=== PATIENT | male | born 1950 | race Caucasian/White ===

== ENCOUNTER 2017-06-07 16:43 | Inpatient (IN) | payer OTHER ==
[~2017-06-07] VITALS: Ht 193 cm; Wt 108.9 kg
[~2017-06-07 16:43] MED LIST: LEVSIN0.125 M1 PO; LOSARTAN POTASS50 M1 PO; LOVASTATIN20 M1 PO; METFORMIN HCL1000 M1 PO; MORPHINE SULFAT15 M3 PO; PERCOCET 5-3251 EACH PO; PROVENTIL HFA6.7 GM INH; ZOFRAN ODT4 M1 SL
--- NOTE | 2017-06-07 18:56 | ED INFLUENZA/URI COMPLAINT ---
History of Present Illness General Chief Complaint: Upper Respiratory Sx/Fever Stated Complaint: ?FLU Source: patient, family Exam Limitations: no limitations Vital Signs & Intake/Output Vital Signs & Intake/Output Vital Signs Date Time Temp Pulse Resp B/P B/P Pulse O2 O2 Flow FiO2 Mean Ox Delivery Rate 06/09 1855 93 Nasal 1.0L Cannula 06/09 1600 Nasal 1.0L Cannula 06/09 1443 98.2 68 20 120/68 95 06/09 0944 76 152/70 06/09 0824 94 Nasal 2.0L Cannula 06/09 0800 Nasal 2.0L Cannula 06/09 0620 98.7 76 20 152/70 95 Nasal 2.0L Cannula 06/09 0000 Nasal 2.0L Cannula 06/08 2226 98.3 76 20 124/80 95 Nasal Cannula ED Intake and Output 06/09 0000 06/08 1200 Intake Total 980 250 Output Total 600 Balance 980 -350 Intake, IV 300 200 Intake, Oral 680 50 Number 1 Bowel Movements Output, Urine 600 Patient 240 lb Weight Weight Bed scale Measurement Method Allergies Coded Allergies: No Known Allergies (04/23/17) Triage Note: RECEIVED 66 YO MALE WITH C/O SEVERE NON PRODUCTIVE COUGH X FEW DAYS, PLEURITIC CHEST PAIN WITH COUGHING, LOW GRADE FEVER, BODY ACHES AND PAIN, WEAKNESS. Triage Nurses Notes Reviewed? yes Onset: Gradual Duration: day(s): Timing: recent history Severity: moderate HPI: 66yo male with hx of CAD s/p stents, DM, bladder CA presents to ED complaining of cough, fever/chills, weakness, fatigue, and sore throat x 2 days. Patient reports that symptoms have been gradually worsening over the past 2 days. Cough is intermittently productive of yellow sputum. Patient also reporting intermittent dyspnea. Patient also notes pleuritic pain bilaterally. Patient is a former smoker. Patient's present states she recently had bronchitis a few weeks ago. Patient denies chest pain, abdominal pain, nausea, vomiting, diarrhea. (Dang PACHECO,Leyla Ornelas) Reconcile Medications Albuterol Sulfate (Proventil Hfa) 90 MCG HFA.AER.AD 2 PUF INH 4 TIMES/DAY ( Reported) Amoxicillin/Potassium Clav (Augmentin 875-125 Tablet) 875 MG-125 MG TABLET 1 TAB PO BID Pneumonia Aspirin (Aspirin*) 325 MG TABLET 1 TAB PO DAILY HEART HEALTH (Reported) Hyoscyamine (Levsin) 0.125 MG TABLET 1-2 TAB PO Q6P PRN ABDOMINAL CRAMPS Losartan Potassium 100 MG TABLET 1 TAB PO DAILY HIGH BLOOD PRESSURE (Reported ) Lovastatin 20 MG TABLET 1 TAB PO DAILY HIGH CHOLESTEROL (Reported) Metformin HCl 1,000 MG TABLET 1 TAB PO BID DM (Reported) Morphine Sulfate (Morphine Sulfate ER) 15 MG TABLET.ER 1 TAB PO BIDP PRN NEUROPATHY IN FEET (Reported) Ondansetron (Zofran Odt) 4 MG TAB.RAPDIS 1 TAB SL Q6P PRN NAUSEA/VOMITING Oxycodone HCl/Acetaminophen (Percocet 5-325 MG Tablet) 1 EACH TABLET 1-2 TAB PO Q6P PRN PAIN (Kamran Farr DO) Past History Travel History Traveled to [place] past 21 day No Medical History Any Pertinent Medical History? see below for history Neurological: NONE EENT: hearing loss Cardiovascular: hypertension, hyperlipidemia, STENT Respiratory: NONE Gastrointestinal: NONE Hepatic: NONE Renal: NONE Musculoskeletal: NONE Psychiatric: NONE Endocrine: diabetes Blood Disorders: NONE Cancer(s): NONE Surgical History Surgical History: non-contributory Psychosocial History Who do you live with Spouse What is your primary language Sammarinese Tobacco Use: Never used Family History Hx Contributory? No (Leyla Thomas) Review of Systems Review of Systems Constitutional: Reports: see HPI. EENTM: Reports: see HPI. Respiratory: Reports: see HPI. Cardiovascular: Reports: no symptoms. GI: Reports: no symptoms. Genitourinary: Reports: no symptoms. Musculoskeletal: Reports: no symptoms. Skin: Reports: no symptoms. Neurological/Psychological: Reports: no symptoms. Hematologic/Endocrine: Reports: no symptoms. Immunologic/Allergic: Reports: no symptoms. All Other Systems: Reviewed and Negative (Leyla Thomas) Physical Exam Physical Exam General Appearance: well developed/nourished, no apparent distress, alert, awake Head: atraumatic, normal appearance Eyes: Bilateral: normal appearance. Ears, Nose, Throat: hearing grossly normal, mild erythema to pharynx bilaterally , no exudates Neck: normal inspection, supple, full range of motion Respiratory: inspiratory wheezes left anterior lung field, mildly diminished breath sounds bilateral posterior lower lobes Cardiovascular: tachycardia Peripheral Pulses: 2+ radial (R), 2+ radial (L) Gastrointestinal: normal bowel sounds, soft, non-tender, no organomegaly Back: normal inspection, normal range of motion Extremities: normal inspection, normal range of motion, no edema Neurologic/Psych: awake, alert, oriented x 3 Skin: intact, normal color, warm/dry Core Measures Sepsis Present: No Sepsis Focused Exam Completed? No (Dang PACHECO,Leyla Ornelas) Progress Differential Diagnosis: influenza, pneumonia, pharyngitis, sinusitis Plan of Care: Orders Procedure Date/time Status CBC WITHOUT DIFFERENTIAL 06/10 0600 Active Anticipated Discharge 06/10 UNK Active MISSING MEDICATION FORM 06/09 UNK Active OXYGEN SETUP CHG 06/08 UNK Complete OXYGEN 06/08 UNK Complete OXYGEN TRANSPORT 06/08 UNK Complete Current Medications Sig/Rani Start time Last Medication Dose Stop Time Status Admin Prednisone 40 MG DAILY 06/09 1000 AC 06/09 0944 Gabapentin 100 MG Q8 06/09 0733 AC 06/09 (Neurontin) 1449 Ceftriaxone Sodium 1,000 MG 2300 06/08 2300 AC 06/08 (Rocephin) 2233 Senna/Docusate Sodium 1 TAB AT BEDTIME 06/08 2200 AC 06/08 (Senokot S) 2113 Atorvastatin Calcium 5 MG 1700 06/08 1700 AC 06/09 (Lipitor) 1757 Albuterol Sulfate 3 ML Q4P PRN 06/08 1445 AC (Proventil) Albuterol Sulfate 2 PUF 4 TIMES/DAY 06/08 1000 AC 06/09 (Ventolin) 1758 Aspirin 325 MG DAILY 06/08 1000 AC 06/09 (Aspirin) 0944 Enoxaparin Sodium 40 MG DAILY 06/08 1000 AC (Lovenox) Losartan Potassium 100 MG DAILY 06/08 1000 AC 06/09 (Cozaar) 0944 Morphine Sulfate 15 MG BID PRN 06/08 1000 AC 06/09 (Ms Contin) 0830 Insulin Aspart 0 TIDAC 06/08 0800 AC 06/09 (NovoLOG) 1757 Acetaminophen 650 MG Q6P PRN 06/08 0215 AC (Tylenol) Guaifenesin 600 MG Q12 06/08 0207 AC 06/09 (Mucinex) 0944 Chest x-ray without evidence for acute pneumonia. Patient's vital signs have improved following antipyretics and supplemental oxygen. Given significant leukocytosis in setting of fever and cough will obtain CT imaging to further assess for pneumonia and rule out PE. CT scan shows likely atypical pneumonia. Patient was started on antibiotics, fluids. Patient with hypoxia at rest without supplemental oxygen, requires IV antibiotics, respiratory therapy, supplemental oxygen, possible pulmonology consult. Spoke with hospitalist, Dr. Cochran regarding this patient's general medicine admission. Diagnostic Imaging: Viewed by Me: Radiology Read, CT Scan. Discussed w/RAD: Radiology Read, CT Scan. Radiology Impression: PATIENT: BERNARDO PERRY PRESENT AGE: 66 PATIENT ACCOUNT NO: [id number] : 51 LOCATION: [facility] ORDERING PHYSICIAN: Leyla PACHECO SERVICE DATE: 06/07/17 EXAM TYPE: CAT - CTA CHEST-PULMONARY EMBOLISM EXAMINATION: CT PULMONARY EMBOLISM STUDY CLINICAL INFORMATION: Dyspnea. Hypoxia. Fever. COMPARISON: Same day chest radiograph. TECHNIQUE: Contiguous helical images of the chest were obtained following the administration of IV contrast. Multiplanar reconstructions were performed. MIPS were obtained and reviewed. DLP: 590 mGy-cm. CONTRAST: 95 mL of Optiray 350 were administered without incident. FINDINGS: The heart is of normal size. There is no pericardial effusion. There is a subcarinal lymph node present measuring 18 mm in short axis. There are scattered right hilar lymph nodes. The largest measures 13 mm in short axis. There is a 14 mm left hilar lymph node. The great vessels are unremarkable. Specifically, there is no pulmonary arterial filling defect. There is no CT evidence for pulmonary embolism. There are no chest wall masses. Review of lung windows demonstrates that there are neither pleural effusions nor pneumothoraces. There is mild right greater than left bilateral bronchial wall thickening. There are areas of likely tree-in-bud opacification with mild surrounding groundglass opacification bilaterally, particularly within the inferior right upper lobe and superior segment lingula and left lower lobe. Within the left lower lobe lateral basal segment best demonstrated on image 464/542, there is an approximately 11 mm nodular density. Limited evaluation of the upper abdomen demonstrates that the liver is of normal size and attenuation without focal lesions. Normal adrenal glands are identified. IMPRESSION: No CT evidence for pulmonary embolism. Mediastinal and hilar adenopathy as stated above. Bronchial wall thickening and scattered areas of tree-in-bud opacification. This is nonspecific, but suggestive of an atypical infection. 11 mm left lower lobe nodular density. DICTATED BY: Cleve Cowan MD DATE/TIME DICTATED:06/07/172236 BOW REHAIRER:ALEX DATE/TIME TRANSCRIBED:06/07/172236 CONFIDENTIAL, DO NOT COPY WITHOUT APPROPRIATE AUTHORIZATION. <Electronically signed in Other Vendor System> SIGNED BY: Cleve Cowan MD 06/07/172245 CXR Impression: PATIENT: BERNARDO PERRY PRESENT AGE: 66 PATIENT ACCOUNT NO: [id number] : 51 LOCATION: [facility] ORDERING PHYSICIAN: Leyla PACHECO SERVICE DATE: 06/07/17 EXAM TYPE: RAD - XRY- PORTABLE CHEST XRAY EXAMINATION: CHEST 1 VIEW CLINICAL INFORMATION: Cough. COMPARISON: 04/23/2017. TECHNIQUE: An AP view of the chest is provided. FINDINGS : The cardiac silhouette is not enlarged. The mediastinal and hilar contours are unremarkable. There are neither pleural effusions nor pneumothoraces. There are no consolidations. The osseous structures are unremarkable. IMPRESSION: No evidence for acute disease. DICTATED BY: Cleve Cowan MD DATE/TIME DICTATED:1901 BOW REHAIRER:ALEX DATE/TIME TRANSCRIBED:06/07/171901 CONFIDENTIAL, DO NOT COPY WITHOUT APPROPRIATE AUTHORIZATION. <Electronically signed in Other Vendor System> SIGNED BY: Cleve Cowan MD 06/07/171904 Initial ED EKG: sinus rhythm @88bpm, old inferior wall CT Prior EKG: unchanged (04/23/17) (Leyla Thomas) Departure Departure Disposition: STILL A PATIENT Condition: Stable Clinical Impression Primary Impression: Pneumonia Secondary Impressions: Dyspnea Referrals: Amandeep Aceves MD (PCP/Family) Departure Forms: Customer Survey General Discharge Information Admission Note Spoke With: Moo Justin MD Documentation of Exam: Documentation of any treatments & extenuating circumstances including Concerns Regarding Discharge (functional status, medication knowledge or non-compliance, living conditions, etc.) that warrant an admission rather than observation: [ Pneumonia with hypoxemia requiring IV antibiotics, supplemental oxygen, respiratory treatment, possible pulmonology consult the cultures, repeat labs, antipyretics, premature discharge would BE medically unsafe] (Leyla Thomas) Departure Prescriptions: Current Visit Scripts Amoxicillin/Potassium Clav (Augmentin 495-125 Tablet) 1 TAB PO BID #14 TAB PA/TIP MENDER Co-Sign Statement Statement: ED Attending supervision documentation- [] I saw and evaluated the patient. I have also reviewed all the pertinent lab results and diagnostic results. I agree with the findings and the plan of care as documented in the PA's/TIP MENDER's documentation. [X] I have reviewed the ED Record and agree with the PA's/TIP MENDER's documentation. [] Additions or exceptions (if any) to the PAs/TIP MENDER's note and plan are summarized below: [] (Kamran Farr DO) General Discharge Information Admission Note Spoke With: Nhan PHAM,Moo Documentation of Exam: Documentation of any treatments & extenuating circumstances including Concerns Regarding Discharge (functional status, medication knowledge or non-compliance, living conditions, etc.) that warrant an admission rather than observation: [ Pneumonia with hypoxemia requiring IV antibiotics, supplemental oxygen, respiratory treatment, possible pulmonology consult the cultures, repeat labs, antipyretics, premature discharge would BE medically unsafe]
--- NOTE | 2017-06-07 19:05 | RADIOLOGY REPORT ---
EXAMINATION: CHEST 1 VIEW CLINICAL INFORMATION: Cough. COMPARISON: 04/23/2017. TECHNIQUE: An AP view of the chest is provided. FINDINGS: The cardiac silhouette is not enlarged. The mediastinal and hilar contours are unremarkable. There are neither pleural effusions nor pneumothoraces. There are no consolidations. The osseous structures are unremarkable. IMPRESSION: No evidence for acute disease.
[2017-06-07 19:34] LABS: ABSOLUTE EOSINOPHIL COUNT 0 /CUMM (0.0-0.7); WHITE BLOOD CELL COUNT 18.8 /CUMM (4.8-10.8)
[2017-06-07 19:42] LABS: ABSOLUTE BASOPHIL COUNT 0.1 /CUMM (0.0-0.2); ABSOLUTE GRANULOCYTE CT 14.4 /CUMM (1.4-6.5); ABSOLUTE MONOCYTE COUNT 0.4 /CUMM (0.10-0.60); BASOPHIL % 0.3 % (0.0-2.0); EOSINOPHIL % 0 % (0-5); HEMATOCRIT 47.4 % (42-52); MEAN CORPUSCULAR HGB CONC 33.4 G/DL (33.0-37.0); MEAN CORPUSCULAR VOLUME 92.7 FL (80.0-94.0); MEAN PLATELET VOLUME 10.9 FL (7.4-10.4); PLATELET COUNT 231 /CUMM (130-400); RBC DISTRIBUTION WIDTH 14.7 % (11.5-14.5); RED BLOOD CELL CT 5.11 /CUMM (4.70-6.10)
[2017-06-07 20:11] LABS: GRANULOCYTE % 76.5 % (42.2-75.2)
--- NOTE | 2017-06-07 22:46 | CT SCAN REPORT ---
EXAMINATION: CT PULMONARY EMBOLISM STUDY CLINICAL INFORMATION: Dyspnea. Hypoxia. Fever. COMPARISON: Same day chest radiograph. TECHNIQUE: Contiguous helical images of the chest were obtained following the administration of IV contrast. Multiplanar reconstructions were performed. MIPS were obtained and reviewed. DLP: 590 mGy-cm. CONTRAST: 95 mL of Optiray 350 were administered without incident. FINDINGS: The heart is of normal size. There is no pericardial effusion. There is a subcarinal lymph node present measuring 18 mm in short axis. There are scattered right hilar lymph nodes. The largest measures 13 mm in short axis. There is a 14 mm left hilar lymph node. The great vessels are unremarkable. Specifically, there is no pulmonary arterial filling defect. There is no CT evidence for pulmonary embolism. There are no chest wall masses. Review of lung windows demonstrates that there are neither pleural effusions nor pneumothoraces. There is mild right greater than left bilateral bronchial wall thickening. There are areas of likely tree-in-bud opacification with mild surrounding groundglass opacification bilaterally, particularly within the inferior right upper lobe and superior segment lingula and left lower lobe. Within the left lower lobe lateral basal segment best demonstrated on image 464/542, there is an approximately 11 mm nodular density. Limited evaluation of the upper abdomen demonstrates that the liver is of normal size and attenuation without focal lesions. Normal adrenal glands are identified. IMPRESSION: No CT evidence for pulmonary embolism. Mediastinal and hilar adenopathy as stated above. Bronchial wall thickening and scattered areas of tree-in-bud opacification. This is nonspecific, but suggestive of an atypical infection. 11 mm left lower lobe nodular density.
--- NOTE | 2017-06-08 00:49 | History & Physical ---
Peter PHAM,[facility] 06/08/17 0048: General Information and HPI MD Statement: I have seen and personally examined BERNARDO MURRAY and documented this H&P. The patient is a 66 year old M who presented with a patient stated chief complaint of [cough, shortness of breath]. Source of Information: patient History of Present Illness: 66 year old male with a pmhx of htn, hld, cad s/p bare metal stent in 2011, t2d, bladdder cancer, appendicitis presenting for worsening cough. The patietn states that he had bronchitis several weeks ago. The patient states his symptoms started wednesday with an itch in his through. He states his new cough started last night and has been keeping him awake. He assocaites it with productive yellow/ green sputum and some SOB. He denies any cp, ear pain, nasal congestion, muscle aches, joint pain, sick contacts, abd pain, changes in elmiination or leg swelling. He has not received the flu or pna vaccine this year. He states he quit smoking 30 years ago and quit etoh 3 years ago. He does still smoker marijuana daily. Allergies/Medications Allergies: Coded Allergies: No Known Allergies (04/23/17) Past History Travel History Traveled to [place] past 21 day No Medical History Neurological: NONE EENT: hearing loss Cardiovascular: hypertension, hyperlipidemia, STENT Respiratory: NONE Gastrointestinal: NONE Hepatic: NONE Renal: NONE Musculoskeletal: NONE Psychiatric: NONE Endocrine: diabetes Blood Disorders: NONE Cancer(s): NONE Surgical History Surgical History: non-contributory Review of Systems Review of Systems Constitutional: Reports: see HPI. Respiratory: Reports: cough, short of breath, sputum production. Exam & Diagnostic Data Last 24 Hrs of Vital Signs/I&O Vital Signs Date Time Temp Pulse Resp B/P B/P Pulse O2 O2 Flow FiO2 Mean Ox Delivery Rate 06/08 1600 Nasal 2.0L Cannula 06/08 1420 98.3 81 1 130/62 96 06/08 1318 Nasal 2.0L Cannula 06/08 0826 136/60 06/08 0609 97.4 84 20 136/64 95 Nasal 2.0L Cannula 06/08 0305 Nasal 2.0L Cannula 06/08 0247 98.0 83 20 98/60 90 Nasal 2.0L Cannula 06/07 2039 99.9 20 90 Room Air Room Air 02/12 2013 94 Nasal 3.0L Cannula 06/07 2003 102.5 06/07 1947 102.6 06/07 1941 102.6 109 22 149/68 88 Room Air Room Air 06/074 95 Room Air Room Air 06/07 1810 100.2 110 20 198/81 90 Room Air Intake & Output 06/08 1600 06/08 0800 06/08 0000 Intake Total 200 250 120 Output Total 150 450 Balance 50 -200 120 Intake, IV 200 Intake, Oral 200 50 120 Number 1 0 Bowel Movements Output, Urine 150 450 Patient 240 lb 255 lb Weight Weight Bed scale Measurement Method Physical Exam General Appearance Alert, Cooperative, Mild Distress HEENT no lymphadenopathy Cardiovascular systolic murmur Lungs diffuse decreased air movement, diffuse wheezes Abdomen Normal Bowel Sounds, Soft, No Tenderness Extremities trace LE edema Vascular 2+ radial pulses Last 24 Hrs of Labs/Narayan: Laboratory Tests 06/08/17 0720: Anion Gap 15, Estimated GFR > 60, BUN/Creatinine Ratio 31.7 H, Hemoglobin A1c 6.5 H, Troponin I < 0.01, CBC w Diff NO MAN DIFF REQ, RBC 4.97, MCV 93.3, MCH 30.9, MCHC 33.2, RDW 15.0 H, MPV 10.5 H, Gran % 81.5 H, Lymphocytes % 18.1 L , Monocytes % 0.4 L, Eosinophils % 0, Basophils % 0, Absolute Granulocytes 15.0 H, Absolute Lymphocytes 3.3, Absolute Monocytes 0.1, Absolute Eosinophils 0, Absolute Basophils 0 06/08/17 0630: Urine Opiates Screen > 4000.00 H, Methadone Screen < 40, Barbiturate Screen < 60, Ur Phencyclidine Scrn < 6.00, Amphetamines Screen < 100, U Benzodiazepines Scrn > 800 H, Urine Cocaine Screen < 50, Urine Cannabis Screen > 80.00 H, Urine Color YEL, Urine Clarity CLEAR, Urine pH 6.0, Ur Specific [place] 1.025, Urine Protein 30 H, Urine Ketones 15 H, Urine Nitrite NEG, Urine Bilirubin NEG , Urine Urobilinogen 0.2, Ur Leukocyte Esterase NEG, Ur Microscopic SEDIMENT EXAMINED, Urine RBC RARE, Urine WBC RARE, Ur Epithelial Cells RARE, Urine Hemoglobin NEG, Urine Glucose NEG 06/08/17 0615: Troponin I Cancelled 06/07/17 2252: Lactic Acid 1.3 06/07/172117: Anion Gap 16, Estimated GFR > 60, BUN/Creatinine Ratio 20.0, Glucose 175 H, Calcium 9.6, Total Bilirubin 0.7, AST 19, ALT 22, Alkaline Phosphatase 44, Troponin I 0.01, Total Protein 7.6, Albumin 4.6, Globulin 3.0, Albumin/Globulin Ratio 1.5, CBC w Diff NO MAN DIFF REQ, RBC 5.11, MCV 92.7, MCH 31.0, MCHC 33.4, RDW 14.7 H, MPV 10.9 H, Gran % 76.5 H, Lymphocytes % 21.0, Monocytes % 2.2, Eosinophils % 0, Basophils % 0.3, Absolute Granulocytes 14.4 H, Absolute Lymphocytes 4.0 H, Absolute Monocytes 0.4, Absolute Eosinophils 0, Absolute Basophils 0.1 06/07/17 1836: Lactic Acid 2.0 Microbiology 06/08 914 LOWER RESP: Respiratory Culture - RES 06/08 914 LOWER RESP: Gram Stain - RES 06/08 629 URINE ROUT: Legionella Antigen - COMP 06/08 629 URINE ROUT: Streptococcus pneumoniae Antigen (M - COMP STREP PNEUMO BACTERIAL AG 06/07 2314 BLOOD: Blood Culture - RES 06/07 2252 BLOOD: Blood Culture - RES 06/07 2041 URINE ROUT: Urine Culture - CAN Cancelled: SPECIMEN NOT RECEIVED IN LABORATORY 06/07 181 NASOPHARYN: Influenza Virus A & B Rapid Smear - COMP Assessment/Plan Assessment: A: 66 yo old male with a pmhx CAD s/p RCA bare-metal stent, T2DM, HTN, HLD, bladder cancer in remission, GERD presenting for worsening productive cough, sob, and fevers found to have sepsis secondary to cap vs atypical pneumonia #Acute hypoxic respiratory failure due to cap vs atpical pneumonia T max 102.6, RR 20, BP 198/81-> 149/68, 90% on RA -> 94% on 3L WBC 18.8 Lactic acid 2.0 -> 1.3 trop .01. Flu swab neg. CXR: no acute disease. CTA chest: no PE. Bilateral bronchial wall thickening, tree-in-bud opacification with mild surrounding groundglass opacification within inferior RUL and LLL. 11 mm nodule in LLL. Mediastinal and hilar adenopathy. - f/u panculture, urine legionella and strep Ag - f/u Pulm consult - Repeat EKG and troponin in 6 AM - cont azithromycin Ceftriaxone #?COPD exascerbation Pt never diagnosed But smoking hx and continues to smoke marijuana -cont guaifenesin, trc, nebs - solumedrol q12 #htn -cont losartan Aspirin full dose #diabetes -f/u HbA1c -hold home metformin start novolog #History of CAD -cont atorvastatin- -encourage outpt cardiac f/u #Marijuana user -f/u check utox screen -psych for substance abuse counseling #Left lower lobe lung nodule with hilar/mediastinal LN -pulm consult as above -outpatient follow up #chronic pain and neuropathy -cont home MS Contin #FULL CODE #DVT prophylaxis -lovenox As Ranked By This Provider Problem List: 1. Dyspnea 2. Pneumonia 3. Sepsis Core Measures/Misc (01/10) Acute Coronary Syndrome ACS Diagnosis: No Congestive Heart Failure Congestive Heart Failure Diagnosis No Cerebrovascular Accident CVA/TIA Diagnosis: No VTE (View Protocol) VTE Risk Factors Acute Medical Illness No Mechanical VTE Prophylaxis d/t Other No VTE Pharm Prophylaxis d/t NA PharmProphylax ordered Sepsis (View protocol) Sepsis Present: Yes Nhan PHAM, [facility] 06/08/17 0115: Attending MD Review Statement Attending Statement Attending MD Statement: examined this patient, discuss w/resident/PA/HUMAN RESOURCE ASSISTANT, agreed w/resident/PA/HUMAN RESOURCE ASSISTANT, reviewed images, amended to note Attending Assessment/Plan: 66 yo M with h/o CAD s/p RCA bare-metal stent, T2DM, HTN, HLD, bladder cancer in remission, GERD, is here for c/o fever 102, productive cough and dyspnea for the past 2 days. C/o weakness, fatigue, sore throat and pleuritic chest pain. recently had bronchitis. He has had flu and pneumonia vaccines. He quit smoking cigarettes 30 yrs ago, but continues to use marijuana. He has never been diagnosed with COPD or asthma. Vitals: Tmax 102.6, HR 80-110's, BP 149/68 -->98/60, sats 88% RA --> 94% on 3L. Exam: AAO, in mild distress, dry mucous membranes, Neck supple, Chest b/l reduced air entry L>R, scattered wheeze+, Heart S1S2 regular, systolic murmur+, LE: trace edema. Labs: WBC 18.8, H/H 15.8/47.4, Plt 231, lactic acid 2.0, glucose 175, trop neg. Flu swab neg. CXR: no acute disease. CTA chest: no PE. Bilateral bronchial wall thickening, tree-in-bud opacification with mild surrounding groundglass opacification within inferior RUL and LLL. 11 mm nodule in LLL. Mediastinal and hilar adenopathy. EKG: sinus rhythm. Assessment and plan: 1. Acute hypoxic respiratory failure with sepsis 2. Community acquired pneumonia ?atypical pneumonia 3. COPD exacerbation (ex-smoker, although no PFT diagnosis) 4. Left lower lobe lung nodule with hilar/mediastinal LN 5. History of CAD 6. Marijuana user - Admit to General medicine - Panculture, urine legionella and strep Ag - IV ceftriaxone and azithro - TRC nebs - IV steroids - Pulm consult - Follow up lung nodule as outpatient - Check urine tox screen - Repeat EKG and troponin in AM - Counseling about substance abuse - Diabetes management, check HbA1c, hold metformin, initiate novolog SS - Continue morphine ER for chronic pain and neuropathy - Continue aspirin, statin and losartan. DVT ppx Lovenox. Full code. Marie PHAM,[facility] 06/08/17 0307: General Information and HPI Allergies/Medications Home Med list Albuterol Sulfate (Proventil Hfa) 90 MCG HFA.AER.AD 2 PUF INH 4 TIMES/DAY ( Reported) Aspirin (Aspirin*) 325 MG TABLET 1 TAB PO DAILY HEART HEALTH (Reported) Hyoscyamine (Levsin) 0.125 MG TABLET 1-2 TAB PO Q6P PRN ABDOMINAL CRAMPS Losartan Potassium 100 MG TABLET 1 TAB PO DAILY HIGH BLOOD PRESSURE (Reported ) Lovastatin 20 MG TABLET 1 TAB PO DAILY HIGH CHOLESTEROL (Reported) Metformin HCl 1,000 MG TABLET 1 TAB PO BID DM (Reported) Morphine Sulfate (Morphine Sulfate ER) 15 MG TABLET.ER 1 TAB PO BIDP PRN NEUROPATHY IN FEET (Reported) Ondansetron (Zofran Odt) 4 MG TAB.RAPDIS 1 TAB SL Q6P PRN NAUSEA/VOMITING Oxycodone HCl/Acetaminophen (Percocet 5-325 MG Tablet) 1 EACH TABLET 1-2 TAB PO Q6P PRN PAIN Resident Review Statement Resident Statement: examined this patient, discussed with legal intern, agreed with legal intern Other Findings: Mr. Murray is a 66 year old male with past medical history significant for hypertension, hyperlipidemia, coronary artery disease status post metal stent placement 2011 on full dose aspirin, blood cancer status post tumor excision presented to ED with chief complaint of severe cough for 2 days. Patient reported having sore throat and dry cough 2 days ago, but has been getting worse , productive of yellow/green sputum, associated with some shortness of breath. He denied any fever, chills, body aches, chest pain, palpitation, nasal congestion, ear or eye pain, history of sick contact. Patient didn't have flu vaccine or pneumonia vaccine. never been hospitalized before for pneumonia. He takes medication on regular basis, recently losartan increased from 50-100 mg daily, not following with cardiology Monet Pulido MD since 2011. Patient quit smoking 30 years ago, daily marijuana smoker, no alcohol consumption. Denied any leg swelling, reported some an intentional weight loss couple of pounds over the last 6 month none significant. Patient never diagnosed with COPD or any other lung disease. Vital signs on admission 100.2 with Tmax 102.6, heart rate 110, blood pressure 198/81 and patient was saturating 90% on room air, 94% on 3 L Physical exam significant for bilateral lung decreased air entry, cardiovascular systolic murmur Images CTA revealed No CT evidence for pulmonary embolism. Mediastinal and hilar adenopathy as stated above. Bronchial wall thickening and scattered areas of tree-in-bud opacification. This is nonspecific, but suggestive of an atypical infection. 11 mm left lower lobe nodular density. Problem list Acute hypoxic respiratory failure Pneumonia community-acquired versus atypical Left lower lobe lung nodule Mediastinal and hilar adenopathy reactional versus malignancy Hypertension and hyperlipidemia Diabetes mellitus type 2 Coronary artery disease Plan Admit to general medical floor Vitals every shift TRC and nebs Oxygen supplementation Ceftriaxone and azithromycin Urine streptococcus antigen and Legionella antigen Blood and sputum culture UA and urine tox One bag of normal saline 75 mL per hour Mucinex Will obtain pulmonary consultation in a.m. Accu-Chek and NovoLog sliding scale low-dose Continue home medication losartan, statin, morphine XL, aspirin, albuterol inhaler Discontinue metformin Stool softener DVT prophylaxis Lovenox Diet diabetic diet with 2 g sodium restriction Code full
--- NOTE | 2017-06-08 01:18 | Admission Certification ---
Admission Certification Certification Statement - As attending physician, I certify that at the time of - admission, based on clinical presentation, severity of - symptoms, need for further diagnostic testing and - therapeutic interventions, and risk of adverse outcomes - without in-hospital treatment, in my clinical assessment, - this patient requires an acute hospital stay for a minimum - of two nights or longer. I have also considered psychsocial - factors such as support system, advanced age, financial - issues, cognitive issues, and failed out-patient treatments, - past re-admission history, safety of patient, and lack of - compliance as applicable. Specific rationale supporting this admission is: Acute hypoxic respiratory failure, community acquired pneumonia, COPD exacerbation.
[2017-06-08] MEDS ORDERED: ASPIRIN325 M2 PO (01:23)
[2017-06-08] MEDS ORDERED: LOSARTAN POTAS100 M1 PO (02:10)
[2017-06-08 02:47] VITALS: BP 98/60
[2017-06-08 06:09] VITALS: BP 136/64
[2017-06-08 08:43] LABS: ABSOLUTE BASOPHIL COUNT 0 /CUMM (0.0-0.2); ABSOLUTE EOSINOPHIL COUNT 0 /CUMM (0.0-0.7); ABSOLUTE LYMPH COUNT 3.3 /CUMM (1.2-3.4); ABSOLUTE MONOCYTE COUNT 0.1 /CUMM (0.10-0.60); BASOPHIL % 0 % (0.0-2.0); EOSINOPHIL % 0 % (0-5); GRANULOCYTE % 81.5 % (42.2-75.2); HEMATOCRIT 46.3 % (42-52); MEAN CORPUSCULAR HGB 30.9 PG (27.0-31.0); MEAN CORPUSCULAR HGB CONC 33.2 G/DL (33.0-37.0); MEAN CORPUSCULAR VOLUME 93.3 FL (80.0-94.0); MEAN PLATELET VOLUME 10.5 FL (7.4-10.4); PLATELET COUNT 196 /CUMM (130-400); RED BLOOD CELL CT 4.97 /CUMM (4.70-6.10); WHITE BLOOD CELL COUNT 18.4 /CUMM (4.8-10.8)
[2017-06-08 14:20] VITALS: BP 130/62
--- NOTE | 2017-06-08 21:32 | PN- Att Addend ---
Attending Addendum Attending Brief Note 66M PMH CAD s/p RCA bare-metal stent, T2DM, HTN, HLD, bladder cancer in remission, GERD admitted after presenting with fever, productive cough, and pleuritic chest pain, found to have bilateral lower lobe pneumonia on CT with positive Streptococcal antigen. Patient feels well overall and wants to go home. He is still coughing, has been afebrile since overnight, WBC 18, lactate normal, cultures NGTD. Tmax 102, VSS NAD NCAT MMM Supple RRR Bilateral rhonchi Soft, NTND No c/c/e Pulses intact A&Ox3 no focal deficits Current Medications Sig/Rani Start time Last Medication Dose Route Stop Time Status Admin Acetaminophen 650 MG Q6P PRN 06/08 0215 AC PO Albuterol Sulfate 3 ML Q4P PRN 06/08 1445 AC INH Albuterol Sulfate 2 PUF 4 TIMES/DAY 06/08 1000 AC 06/08 INH 2112 Aspirin 325 MG DAILY 06/08 1000 AC 06/08 PO 0826 Atorvastatin Calcium 5 MG 1700 06/08 1700 AC 06/08 PO 1702 Azithromycin 500 MG 2300 06/08 2300 AC Dextrose/Water 250 ML IV Azithromycin 500 MG ONCE ONE 06/07 2100 DC 06/07 Dextrose/Water 250 ML IV 06/07 215 2328 Ceftriaxone Sodium 1,000 MG 2300 06/08 2300 AC IV Ceftriaxone Sodium 0 .STK-MED ONE 06/07 2236 DC .ROUTE Enoxaparin Sodium 40 MG DAILY 06/08 1000 AC SC Guaifenesin 600 MG Q12 06/08 0207 AC 06/08 PO 2112 Ibuprofen 400 MG ONCE ONE 06/08 0915 DC 06/08 PO 06/08 0916 0903 Influenza Virus 0.5 ML ONCE ONE 06/08 0330 DC Vaccine IM 06/08 0331 Insulin Aspart 0 TIDAC 06/08 0800 AC 06/08 SC 1749 Losartan Potassium 100 MG DAILY 06/08 1000 AC 06/08 PO 0826 Methylprednisolone 40 MG Q12 06/08 1000 AC 06/08 IV 211 Methylprednisolone 0 .STK-MED ONE 06/074 DC .ROUTE Morphine Sulfate 15 MG BID PRN 06/08 1000 AC 06/08 PO 2112 Morphine Sulfate 15 MG ONCE ONE 06/07 2230 DC 06/07 PO 06/07 223 2329 Senna/Docusate Sodium 1 TAB AT BEDTIME 06/08 2200 AC 06/08 PO 2113 Sodium Chloride 1,000 ML ONCE ONE 06/08 0215 DC 06/08 IV 06/08 1534 0400 Sodium Chloride 1,000 ML BOLUS ONE 06/07 2044 DC 06/07 IV 06/07 2144 2328 Laboratory Tests 06/08 06/08 0720 0630 Chemistry Sodium (137 - 145 mmol/L) 143 Potassium (3.5 - 5.1 mmol/L) 4.5 Chloride (98 - 107 mmol/L) 99 Carbon Dioxide (22 - 30 mmol/L) 29 Anion Gap (5 - 16) 15 BUN (9 - 20 mg/dL) 19 Creatinine (0.7 - 1.2 mg/dL) 0.6 L Estimated GFR (>60 ml/min) > 60 BUN/Creatinine Ratio (7 - 25 %) 31.7 H Hemoglobin A1c (4.2 - 5.8 %) 6.5 H Troponin I (<0.11 ng/ml) < 0.01 Hematology CBC w Diff NO MAN DIFF REQ WBC (4.8 - 10.8 /CUMM) 18.4 H RBC (4.70 - 6.10 /CUMM) 4.97 Hgb (14.0 - 18.0 G/DL) 15.4 Hct (42 - 52 %) 46.3 MCV (80.0 - 94.0 FL) 93.3 MCH (27.0 - 31.0 PG) 30.9 MCHC (33.0 - 37.0 G/DL) 33.2 RDW (11.5 - 14.5 %) 15.0 H Plt Count (130 - 400 /CUMM) 196 MPV (7.4 - 10.4 FL) 10.5 H Gran % (42.2 - 75.2 %) 81.5 H Lymphocytes % (20.5 - 51.1 %) 18.1 L Monocytes % (1.7 - 9.3 %) 0.4 L Eosinophils % (0 - 5 %) 0 Basophils % (0.0 - 2.0 %) 0 Absolute Granulocytes (1.4 - 6.5 /CUMM) 15.0 H Absolute Lymphocytes (1.2 - 3.4 /CUMM) 3.3 Absolute Monocytes (0.10 - 0.60 /CUMM) 0.1 Absolute Eosinophils (0.0 - 0.7 /CUMM) 0 Absolute Basophils (0.0 - 0.2 /CUMM) 0 Toxicology Urine Opiates Screen (>2000 NG/ML) > 4000.00 H Methadone Screen (>300 NG/ML) < 40 Barbiturate Screen (>200 NG/ML) < 60 Ur Phencyclidine Scrn (>25 NG/ML) < 6.00 Amphetamines Screen (>1000 NG/ML) < 100 U Benzodiazepines Scrn (>200 NG/ML) > 800 H Urine Cocaine Screen (>300 NG/ML) < 50 Urine Cannabis Screen (>50 NG/ML) > 80.00 H Urines Urine Color (YEL,AMB,STR) YEL Urine Clarity (CLEAR) CLEAR Urine pH (5.0 - 8.0) 6.0 Ur Specific [place] (1.001 - 1.035) 1.025 Urine Protein (NEG,<30 MG/DL) 30 H Urine Ketones (NEG) 15 H Urine Nitrite (NEG) NEG Urine Bilirubin (NEG) NEG Urine Urobilinogen (0.1 - 1.0 EU/dl) 0.2 Ur Leukocyte Esterase (NEG) NEG Ur Microscopic SEDIMENT EXAMINED Urine RBC (0 - 5 /HPF) RARE Urine WBC (0 - 2 /HPF) RARE Ur Epithelial Cells (NONE,FEW) RARE Urine Hemoglobin (NEG) NEG Urine Glucose (N MG/DL) NEG 06/08 06/07 0615 2252 Chemistry Lactic Acid (0.7 - 2.1 mmol/L) 1.3 Troponin I Cancelled Vital Signs Date Time Temp Pulse Resp B/P B/P Pulse O2 O2 Flow FiO2 Mean Ox Delivery Rate 06/08 1600 Nasal 2.0L Cannula 06/08 1420 98.3 81 1 130/62 96 06/08 1318 Nasal 2.0L Cannula 06/08 0826 136/60 06/08 0609 97.4 84 20 136/64 95 Nasal 2.0L Cannula 06/08 0305 Nasal 2.0L Cannula 06/08 0247 98.0 83 20 98/60 90 Nasal 2.0L Cannula Intake & Output 06/08 1600 06/08 0800 06/08 0000 Intake Total 200 250 120 Output Total 150 450 Balance 50 -200 120 Intake, IV 200 Intake, Oral 200 50 120 Number 1 0 Bowel Movements Output, Urine 150 450 Patient 108.862 kg 115.666 kg Weight Weight Bed scale Measurement Method 1. Sepsis secondary to bilateral lower lobe Streptococcal pneumonia Plan - Continue on general medicine - Continue Ceftriaxone, discontinue Azithromycin tomorrow - Follow cultures - Nebulizer treatments - Continue home medications - DVT PPx
[2017-06-08 22:26] VITALS: BP 124/80
[2017-06-09 06:20] VITALS: BP 152/70
--- NOTE | 2017-06-09 07:32 | PN- Housestaff ---
See Addendum Subjective Follow-up For: Strep Pneumo PNA Subjective: PRACHI. Patient feels well this morning, no CP or SOB. He is complaining of neuropathy in feet. He also mentions that he wants to leave tomorrow morning and does not want his medical records released to any doctors. Review of Systems Constitutional: Reports: no symptoms. EENTM: Reports: no symptoms. Cardiovascular: Reports: no symptoms. Respiratory: Reports: see HPI. Gastrointestinal: Reports: no symptoms. Genitourinary: Reports: no symptoms. Musculoskeletal: Reports: no symptoms. Skin: Reports: no symptoms. Neurological/Psychological: Reports: no symptoms. Hematologic/Endocrine: Reports: no symptoms. Immunologic/Allergic: Reports: no symptoms. Objective Last 24 Hrs of Vital Signs/I&O Vital Signs Date Time Temp Pulse Resp B/P B/P Pulse O2 O2 Flow FiO2 Mean Ox Delivery Rate 06/09 0620 98.7 76 20 152/70 95 Nasal 2.0L Cannula 06/09 0000 Nasal 2.0L Cannula 06/08 2226 98.3 76 20 124/80 95 Nasal Cannula 06/08 1600 Nasal 2.0L Cannula 06/08 1420 98.3 81 1 130/62 96 06/08 1318 Nasal 2.0L Cannula 06/08 0826 136/60 Intake & Output 06/09 0800 06/09 0000 06/08 1600 Intake Total 780 200 Output Total 100 150 Balance -100 780 50 Intake, IV 300 Intake, Oral 480 200 Number 0 1 Bowel Movements Output, Urine 100 150 Physical Exam General Appearance: Alert, Oriented X3, Cooperative, No Acute Distress Skin: No Rashes Cardiovascular: Regular Rate, Normal S1, Normal S2 Lungs: Clear to Auscultation Abdomen: No Tenderness, No Hepatospenomegaly, No Masses Neurological: Normal Speech, Strength at 5/5 X4 Ext, Normal Tone Extremities: No Edema, Normal Pulses, No Tenderness/Swelling Current Medications: Current Medications Sig/Rani Start time Last Medication Dose Route Stop Time Status Admin Acetaminophen 650 MG Q6P PRN 06/08 0215 AC PO Albuterol Sulfate 3 ML Q4P PRN 06/08 1445 AC INH Albuterol Sulfate 2 PUF 4 TIMES/DAY 06/08 1000 AC 06/08 INH 2112 Aspirin 325 MG DAILY 06/08 1000 AC 06/08 PO 0826 Atorvastatin Calcium 5 MG 1700 06/08 1700 AC 06/08 PO 1702 Azithromycin 500 MG 2300 06/08 2300 AC 06/08 Dextrose/Water 250 ML IV 2233 Ceftriaxone Sodium 1,000 MG 2300 06/08 2300 AC 06/08 IV 2233 Enoxaparin Sodium 40 MG DAILY 06/08 1000 AC SC Guaifenesin 600 MG Q12 06/08 0207 AC 06/08 PO 211 Ibuprofen 400 MG ONCE ONE 06/08 914 DC 06/08 PO 06/08 0916 0903 Insulin Aspart 0 TIDAC 06/08 0800 AC 06/08 SC 1749 Losartan Potassium 100 MG DAILY 06/08 1000 AC 06/08 PO 0826 Methylprednisolone 40 MG Q12 06/08 1000 AC 06/08 IV 211 Morphine Sulfate 15 MG BID PRN 06/08 1000 AC 06/08 PO 2112 Senna/Docusate Sodium 1 TAB AT BEDTIME 06/08 2200 AC 06/08 PO 2112 Sodium Chloride 1,000 ML ONCE ONE 06/08 0215 DC 06/08 IV 06/08 1534 0400 Last 24 Hrs of Lab/Narayan Results Last 24 Hrs of Labs/Mics: Microbiology 06/08 914 LOWER RESP: Respiratory Culture - RES 06/08 914 LOWER RESP: Gram Stain - RES Assessment/Plan Assessment: 66 yo old male with a pmhx CAD s/p RCA bare-metal stent, T2DM, HTN, HLD, bladder cancer in remission, GERD presenting for worsening productive cough, sob, and fevers found to have sepsis secondary to CAP. Please note the patient would not like his medical records to be shared with any other outside doctors. Problem List 1. Strep Pneumo Pneumonia 2. COPD exacerbation 3. LLL lung nodule 4. Peripheral neuropathy #Strep Pneumo Pneumonia: Patient presented with sepsis secondary to bacterial pneumonia. He has improved. -Continue ceftriaxone and azithromycin -Prednisone taper -Albuterol -Outpatient follow-up for lung nodule #Peripheral neuropathy: Patient complaining of tingling and pain in his feet. Likely secondary to diabetes and his peripheral neuropathy. -Gabapentin 100 mg 3 times a day, titrate up as necessary Chronic medical problem: Continue home medications DVT prophylaxis with enoxaparin Heart healthy diet Full code Problem List: 1. Pneumonia Pain Ratin Pain Location: no Pain Goal: Remain pain free Pain Plan: see a/p Tomorrow's Labs & Rationales: no
[2017-06-09] MEDS ORDERED: AUGMENTIN 875-1 EACH PO (11:35)
--- NOTE | 2017-06-09 11:36 | Patient Discharge Instructions ---
Discharge Instructions General Discharge Information You were seen/treated for: Streptococcus pneumoniae pneumonia Watch for these problems: Fever, chest pain, shortness of breath Special Instructions: Please take all medications as directed. Please follow up with primary care. Diet Continue normal diet: Yes Activity Full Activity/No Limits: Yes Acute Coronary Syndrome Inclusion Criteria At DC or during hospital stay patient has or had the following: ACS DIAGNOSIS No Discharge Core Measures Meds if any: Prescribed or Continued at Discharge Meds if any: NOT Prescribed or Continued at Discharge Congestive Heart Failure Inclusion Criteria At DC or during hospital stay patient has or had the following: CHF DIAGNOSIS No Discharge Core Measures Meds if any: Prescribed or Continued at Discharge Meds if any: NOT Prescribed or Continued at Discharge Cerebrovascular accident Inclusion Criteria At DC or during hospital stay patient has or had the following: CVA/TIA Diagnosis No Discharge Core Measures Meds if any: Prescribed or Continued at Discharge Meds if any: NOT Prescribed or Continued at Discharge Venous thromboembolism Inclusion Criteria VTE Diagnosis No VTE Type NONE VTE Confirmed by (Test) NONE Discharge Core Measures - Per Current guidelines, there needs to be overlap - treatment for the first 5 days of Warfarin therapy. - If discharged on Warfarin prior to 5 days of - overlap therapy, the patient will need to be - assessed for post discharge needs including - *Post discharge parental anticoagulation - *Warfarin and/or parental anticoagulation education - *Follow up date to check INR post discharge At least 5 days overlap therapy as Inpatient No Meds if any: Prescribed or Continued at Discharge Note: Overlap Therapy is Warfarin and Anticoagulant Meds if any: NOT Prescribed or Continued at Discharge
[2017-06-09 14:43] VITALS: BP 120/68
[2017-06-09 22:23] VITALS: BP 136/62
[2017-06-10 06:00] VITALS: BP 142/80
[2017-06-10] MEDS ORDERED: GABAPENTIN100 M2 PO ×2 (07:38→10:03)
--- NOTE | 2017-06-10 07:40 | PN- Housestaff ---
Subjective Follow-up For: PNA Subjective: No overnight events. Patient feels well this morning, still coughing alittle but breathing is good. Ready to go home. Asking for prescirption for gabapentin, says it helps. Review of Systems Constitutional: Reports: no symptoms. EENTM: Reports: no symptoms. Cardiovascular: Reports: no symptoms. Respiratory: Reports: see HPI. Gastrointestinal: Reports: no symptoms. Genitourinary: Reports: no symptoms. Musculoskeletal: Reports: no symptoms. Skin: Reports: no symptoms. Neurological/Psychological: Reports: no symptoms. Hematologic/Endocrine: Reports: no symptoms. Immunologic/Allergic: Reports: no symptoms. Objective Last 24 Hrs of Vital Signs/I&O Vital Signs Date Time Temp Pulse Resp B/P B/P Pulse O2 O2 Flow FiO2 Mean Ox Delivery Rate 06/10 0600 98.3 87 18 142/80 93 Nasal Cannula 06/10 0000 Nasal 1.0L Cannula 06/09 2223 98.6 66 20 136/62 94 06/09 1855 93 Nasal 1.0L Cannula 06/09 1600 Nasal 1.0L Cannula 06/09 1443 98.2 68 20 120/68 95 06/09 0944 76 152/70 06/09 0824 94 Nasal 2.0L Cannula 06/09 0800 Nasal 2.0L Cannula Intake & Output 06/10 0800 06/10 0000 06/09 1600 Intake Total 300 200 900 Output Total Balance 300 200 900 Intake, Oral 300 200 900 Physical Exam General Appearance: Alert, Oriented X3, Cooperative, No Acute Distress Cardiovascular: Regular Rate, Normal S1, Normal S2 Lungs: rhonci Abdomen: Normal Bowel Sounds, Soft, No Tenderness Neurological: Normal Speech Extremities: No Edema, Normal Pulses, No Tenderness/Swelling Current Medications: Current Medications Sig/Rani Start time Last Medication Dose Route Stop Time Status Admin Acetaminophen 650 MG Q6P PRN 06/08 0215 AC PO Albuterol Sulfate 3 ML Q4P PRN 06/08 1445 AC INH Albuterol Sulfate 2 PUF 4 TIMES/DAY 06/08 1000 AC 06/09 INH 2105 Aspirin 325 MG DAILY 06/08 1000 AC 06/09 PO 0944 Atorvastatin Calcium 5 MG 1700 06/08 1700 AC 06/09 PO 1757 Azithromycin 500 MG 2300 06/08 2300 DC 06/08 Dextrose/Water 250 ML IV 2233 Ceftriaxone Sodium 1,000 MG 2300 06/08 2300 AC 06/10 IV 0005 Enoxaparin Sodium 40 MG DAILY 06/08 1000 AC SC Gabapentin 100 MG Q8 06/09 0733 AC 06/10 PO 0626 Guaifenesin 600 MG Q12 06/08 0207 AC 06/09 PO 210 Insulin Aspart 0 TIDAC 06/08 0800 AC 06/09 SC 1757 Losartan Potassium 100 MG DAILY 06/08 1000 AC 06/09 PO 0944 Morphine Sulfate 15 MG BID PRN 06/08 1000 AC 06/09 PO 2110 Patient Medication 1 ED ONE ONE 06/09 1330 DC 06/09 Teaching ED 06/09 1331 1450 Prednisone 40 MG DAILY 06/09 1000 AC 06/09 PO 0944 Senna/Docusate Sodium 1 TAB AT BEDTIME 06/08 2200 AC 06/09 PO 210 Assessment/Plan Assessment: 66 yo old male with a pmhx CAD s/p RCA bare-metal stent, T2DM, HTN, HLD, bladder cancer in remission, GERD presenting for worsening productive cough, sob, and fevers found to have sepsis secondary to CAP. Please note the patient would not like his medical records to be shared with any other outside doctors. Problem List 1. Strep Pneumo Pneumonia 2. COPD exacerbation 3. LLL lung nodule 4. Peripheral neuropathy #Strep Pneumo Pneumonia: Patient presented with sepsis secondary to bacterial pneumonia. He has improved. -Continue ceftriaxone and azithromycin. Augmentin for total 10 days at discharge. -Prednisone taper -Albuterol -Outpatient follow-up for lung nodule #Peripheral neuropathy: Patient complaining of tingling and pain in his feet. Likely secondary to diabetes. -Gabapentin 100 mg 3 times a day, titrate up as necessary #Chronic medical problem: -Continue home medications DVT prophylaxis with enoxaparin Heart healthy diet Full code Problem List: 1. Pneumonia Pain Ratin Pain Location: no pain Pain Goal: Remain pain free Pain Plan: see a/p Tomorrow's Labs & Rationales: no
[2017-06-10 08:15] LABS: ABSOLUTE BASOPHIL COUNT 0 /CUMM (0.0-0.2); ABSOLUTE EOSINOPHIL COUNT 0 /CUMM (0.0-0.7); ABSOLUTE MONOCYTE COUNT 0.4 /CUMM (0.10-0.60); EOSINOPHIL % 0.1 % (0-5); GRANULOCYTE % 64.9 % (42.2-75.2)
[2017-06-10 08:27] VITALS: BP 134/80
[2017-06-10 08:48] LABS: ABSOLUTE GRANULOCYTE CT 7.7 /CUMM (1.4-6.5); ABSOLUTE LYMPH COUNT 3.7 /CUMM (1.2-3.4); BASOPHIL % 0.3 % (0.0-2.0); HEMATOCRIT 41.9 % (42-52); MEAN CORPUSCULAR HGB 30.4 PG (27.0-31.0); MEAN CORPUSCULAR HGB CONC 32.7 G/DL (33.0-37.0); MEAN CORPUSCULAR VOLUME 93.1 FL (80.0-94.0); MEAN PLATELET VOLUME 10.8 FL (7.4-10.4); PLATELET COUNT 198 /CUMM (130-400); RBC DISTRIBUTION WIDTH 14.8 % (11.5-14.5); WHITE BLOOD CELL COUNT 11.9 /CUMM (4.8-10.8)
[2017-06-10] MEDS ORDERED: AUGMENTIN 875-1 EACH PO (10:03)
--- NOTE | 2017-06-10 10:03 | Discharge Summary ---
Visit Information Visit Dates Admission Date: 06/07/17 Discharge Date: 06/10/17 Hospital Course Course Attending Physician: Dr. Pebbles Min Primary Care Physician: Yola PHAM,[facility] Course: 66 yo old male with a pmhx CAD s/p RCA bare-metal stent, T2DM, HTN, HLD, bladder cancer in remission, GERD presented for worsening productive cough, sob, and fevers found to have sepsis secondary to CAP. T max 102.6, RR 20, BP 198/81-> 149/68, 90% on RA -> 94% on 3L WBC 18.8 Lactic acid 2.0 -> 1.3 trop .01. Flu swab neg. CXR: no acute disease. CTA chest: no PE. Bilateral bronchial wall thickening, tree-in-bud opacification with mild surrounding groundglass opacification within inferior RUL and LLL. 11 mm nodule in LLL. Mediastinal and hilar adenopathy. He was admitted to general medicine and treated for the following problems: 1. Streptococcus pneumoniae pneumonia 2. COPD exacerbation 3. LLL lung nodule 4. Peripheral neuropathy Please note the patient would not like his medical records to be shared with any other outside doctors. #Strep Pneumo Pneumonia/COPD exacerbation: Patient presented with sepsis. Streptococcus pneumoniae antigen in the urine was positive. Cultures remained negative. Flu swab negative. He was treated with ceftriaxone and azithromycin as well as IV steroids and breathing treatments. His leukocytosis is improved and he has remained afebrile. His breathing is improved as well. He is being discharged on Augmentin for total of 10 days. He should follow-up outpatient with primary care for his lung nodule. #Peripheral neuropathy: Patient complaining of tingling and pain in his feet. Likely secondary to diabetes. He was started on gabapentin 100 mg 3 times a day and this provided a good effect for him. He should continue this. #Chronic medical problem: His home medications were continued. Allergies: Coded Allergies: No Known Allergies (04/23/17) Disposition Summary Disposition Principal Diagnosis: 1. Streptococcus pneumoniae pneumonia Additional Diagnosis: 2. COPD exacerbation 3. LLL lung nodule 4. Peripheral neuropathy Discharge Disposition: home or self care Discharge Instructions General Discharge Information Code Status: Full Code Patient's Diet: Diabetic diet Patient's Activity: As tolerated Follow-Up Instructions/Appts: Please take all medications as directed. Please follow-up with primary care for the lung nodule and further treatment of your ongoing medical problems. Medications at Discharge Discharge Medications: Continue taking these medications: Oxycodone HCl/Acetaminophen (Percocet 5-325 MG Tablet) 1 EACH TABLET 1-2 Tablet ORAL EVERY SIX HOURS NEEDED as needed for PAIN Qty = 20 Comments: NOT GIVEN Albuterol Sulfate (Proventil Hfa) 90 MCG HFA.AER.AD 2 Puff Inhale through mouth 4 TIMES A DAY Qty = 6 Comments: Last Taken: 06/10/17 Time: 830AM Lovastatin (Lovastatin) 20 MG TABLET 1 Tablet ORAL DAILY Qty = 90 Comments: ATORVASTATIN GIVEN Last Taken: 06/09/17 Time: 600PM Morphine Sulfate (Morphine Sulfate ER) 15 MG TABLET.ER 1 Tablet ORAL 2 x Daily as needed as needed for NEUROPATHY IN FEET Qty = 60 Comments: Last Taken: 06/10/17 Time: 830AM Metformin HCl (Metformin HCl) 1,000 MG TABLET 1 Tablet ORAL TWICE DAILY Qty = 180 Comments: NOT GIVEN Hyoscyamine (Levsin) 0.125 MG TABLET 1-2 Tablet ORAL EVERY SIX HOURS NEEDED as needed for ABDOMINAL CRAMPS Qty = 20 Comments: NOT GIVEN Ondansetron (Zofran Odt) 4 MG TAB.RAPDIS 1 Tablet SUBLINGUAL EVERY SIX HOURS NEEDED as needed for NAUSEA/VOMITING Qty = 12 Comments: NOT GIVEN Aspirin (Aspirin*) 325 MG TABLET 1 Tablet ORAL DAILY Comments: Last Taken: 06/10/17 Time: 830AM Losartan Potassium (Losartan Potassium) 100 MG TABLET 1 Tablet ORAL DAILY Comments: Last Taken: 06/10/17 Time: 830AM Start taking the following new medications: Amoxicillin/Potassium Clav (Augmentin 875-125 Tablet) 875 MG-125 MG TABLET 1 Tablet ORAL TWICE DAILY Qty = 14 No Refills Instructions: . Comments: NOT GIVEN Gabapentin (Gabapentin) 100 MG CAPSULE 100 Milligram ORAL EVERY 8 HOURS Qty = 90 No Refills Instructions: . Comments: NOT GIVEN Copies To: Pebbles Min MD
--- NOTE | 2017-06-10 10:24 | Incdntl Nt Psy ---
Incidental Note Notation: The consult request for "substance abuse counseling" will be cancelled by the team. The patient is leaving this morning, is not delirious and is not suicidal.
== END 2017-06-10 10:42 | DRG 871 ==
LOC: ERH 16:43 → 2NA 23:20 → ERHI 23:20 → CANRESERV 06-08 01:54 → ENRESERV 06-08 01:54 → 2NA 06-08 02:35 → ENPENDDIS 06-10 10:03 → 2NA 06-10 10:42
PROVIDERS: Internal Medicine; Physician Assistant; Student in an Organized Health Care Education/Training Program
DX: A41.9 Sepsis, unspecified organism (principal); J18.9 Pneumonia, unspecified organism; J96.01 Acute respiratory failure with hypoxia; F12.90 Cannabis use, unspecified, uncomplicated; G62.9 Polyneuropathy, unspecified; I10 Essential (primary) hypertension; I25.10 Atherosclerotic heart disease of native coronary artery without angina pectoris; F12.10 Cannabis abuse, uncomplicated; G89.29 Other chronic pain; Z85.51 Personal history of malignant neoplasm of bladder; E11.42 Type 2 diabetes mellitus with diabetic polyneuropathy; Z95.5 Presence of coronary angioplasty implant and graft; K21.9 Gastro-esophageal reflux disease without esophagitis
CPT/HCPCS: 2NASP; ERO; 36415; 36592; 71045; 80307; 81001; 82436; 87040; 87070; 87086; 87449; 87450; 87804; 87804-59; 93005; 93010; J0456; J0696; J1650; J2920; J2930; J3490; J7060

== ENCOUNTER 2017-11-03 18:56 | Inpatient (IN) | payer OTHER ==
[~2017-11-03] VITALS: Ht 193 cm; Wt 112.6 kg
[~2017-11-03 18:56] MED LIST changes: +ASPIRIN325 M2 PO; +AUGMENTIN 875-1 EACH PO; +GABAPENTIN100 M2 PO; +LOSARTAN POTAS100 M1 PO
--- NOTE | 2017-11-03 19:57 | ED AMS/SEIZURE/WEAK/DIZZY ---
History of Present Illness General Chief Complaint: Syncope and Near-Syncope Stated Complaint: BIBA FOR SYNCOPE Source: patient, family, old records, EMS Exam Limitations: no limitations Vital Signs & Intake/Output Vital Signs & Intake/Output Vital Signs Date Time Temp Pulse Resp B/P B/P Pulse O2 O2 Flow FiO2 Mean Ox Delivery Rate 11/03 2110 97.8 75 18 110/66 93 Nasal 2.0L Cannula 11/04 1911 95 Room Air 11/03 1901 98.6 92 18 117/63 95 Room Air Allergies Coded Allergies: No Known Allergies (04/23/17) Reconcile Medications Albuterol Sulfate (Proventil Hfa) 90 MCG HFA.AER.AD 2 PUF INH PRN RESP. ( Reported) Aspirin (Ecotrin*) 81 MG TABLET.DR 2 TAB PO DAILY HEART/BLOOD (Reported) Losartan Potassium 100 MG TABLET 0.5 TAB PO DAILY HIGH BLOOD PRESSURE ( Reported) Lovastatin 20 MG TABLET 1 TAB PO DAILY HIGH CHOLESTEROL (Reported) Metformin HCl 1,000 MG TABLET 1 TAB PO BID DM (Reported) Morphine Sulfate (Morphine Sulfate ER) 15 MG TABLET.ER 1 TAB PO BIDP PRN NEUROPATHY IN FEET (Reported) Core Measure Meds Pre-Hospital aspirin Triage Note: BIBA FROM HOME S/P UNRESPONSIVE EPISODE. PER EMS FAMILY CALLED 911 AFTER PATIENT HAD A SYNCOPAL EPISODE AT HOME AND BECAME UNRESPONSIVE WITH AGONAL RESPIRATIONS, PD GAVE 0.4MG INTRANASAL NARCAN. EMS ARRIVED ON SCENE AND PATIENT BECAME ALERT AND VOMITTED, PATIENT WAS GIVEN 4MG IV ZOFRAN. PATIENT ARRIVES ALERT, ORIENTED, SPEECH CLEAR, PATIENT DENIES RECALL OF INCIDENT. #18 IN LEFT HAND. AWAITING PROVIDER EVAL, EKG IN PROGRESS. Triage Nurses Notes Reviewed? yes Onset: Just prior to arrival Duration: minute(s):, better, constant, continues in ED Timing: recent history Injury Environment: home Severity: severe Modifying Factors: Improves With: medication (Narcan). HPI: Prior to admission a friend was visiting the patient will became unresponsive. His was called from down the street. She found that he vomited and called 911. EMS administered Narcan with patient arouse. He denies fever chills abdominal pain chest pain cough shortness of breath headache dysuria rash bleeding overuse of his morphine for chronic feet neuropathy.. Past History Travel History Traveled to [place] past 21 day No Medical History Any Pertinent Medical History? see below for history Neurological: NONE EENT: hearing loss Cardiovascular: hypertension, hyperlipidemia, STENT Respiratory: NONE Gastrointestinal: NONE Hepatic: NONE Renal: NONE Musculoskeletal: NONE Psychiatric: NONE Endocrine: diabetes Blood Disorders: NONE Cancer(s): NONE History of MRSA: No History of VRE: No History of CDIFF: No Surgical History Surgical History: non-contributory Psychosocial History Who do you live with Spouse What is your primary language Turkmen Tobacco Use: Quit >30 days ago ETOH Use: occasional use Illicit Drug Use: marijuana Family History Hx Contributory? No Review of Systems Review of Systems Constitutional: Reports: see HPI, weakness. EENTM: Reports: no symptoms. Respiratory: Reports: no symptoms. Cardiovascular: Reports: no symptoms. GI: Reports: see HPI, vomiting. Genitourinary: Reports: no symptoms. Musculoskeletal: Reports: no symptoms. Skin: Reports: no symptoms. Neurological/Psychological: Reports: see HPI, weakness. Hematologic/Endocrine: Reports: no symptoms. Immunologic/Allergic: Reports: no symptoms. All Other Systems: Reviewed and Negative Physical Exam Physical Exam General Appearance: well developed/nourished, awake, comfortable, moderate distress, obese Head: atraumatic, normal appearance Eyes: Bilateral: normal appearance, PERRL, EOMI. Ears, Nose, Throat: normal pharynx, normal ENT inspection Neck: normal inspection, supple, full range of motion, no midline tenderness Respiratory: chest non-tender, no respiratory distress, quiet respiration, decreased breath sounds Cardiovascular: regular rate/rhythm, normal peripheral pulses, norml femoral pulses equa Peripheral Pulses: 4+ carotid (R), 4+ carotid (L) Gastrointestinal: normal bowel sounds, soft, non-tender, no organomegaly Back: normal inspection, normal range of motion Extremities: normal range of motion, no ligament instability Neurologic/Psych: awake, oriented x 3, electrotherapist II-XII nml as tested, depressed affect, motor weakness Reflexes: 2+: bicep (R), bicep (L). Skin: intact, normal color, warm/dry Lymphatic: no anterior cervical brent Core Measures ACS in differential dx? No CVA/TIA Diagnosis No Sepsis Present: No Sepsis Focused Exam Completed? No Progress Differential Diagnosis: alcohol intoxication, anemia, benign positional vertigo, dehydration, drug intoxication, electrolyte imbalance, hypoxia, pneumonia Plan of Care: Orders Procedure Date/time Status Consistent Carbohydrate 2 07/12 B Active Patient Data 11/03 2137 Active OXYGEN SETUP (GEN) 11/03 2113 Active Saline Lock 11/03 2113 Active Admit to inpatient 11/03 2113 Active Vital Signs 11/03 2113 Active Activity/Ambulation 11/03 2113 Active BLOOD CULTURE 11/03 2113 Active Code Status 11/03 2113 Active Intake & Output 11/03 2057 Active URINE DRUG SCREEN FOR ER ONLY 11/03 1937 Active TROPONIN LEVEL 11/03 1937 Complete MAGNESIUM 11/03 1937 Complete ETHANOL 11/03 1937 Complete COMPREHENSIVE METABOLIC PANEL 11/03 1937 Complete CBC WITHOUT DIFFERENTIAL 11/03 1937 Complete EKG 11/03 1900 Active Laboratory Tests 11/03/171952: Anion Gap 15, Estimated GFR > 60, BUN/Creatinine Ratio 27.8 H, Glucose 251 H, Calcium 9.3, Magnesium 2.0, Total Bilirubin 0.2, AST 50, ALT 41, Alkaline Phosphatase 45, Troponin I 0.08, Total Protein 6.7, Albumin 3.8, Globulin 2.9, Albumin/Globulin Ratio 1.3, CBC w Diff NO MAN DIFF REQ, RBC 5.00, MCV 91.6, MCH 30.5, MCHC 33.3, RDW 14.2, MPV 10.3, Gran % 80.2 H, Lymphocytes % 16.1 L, Monocytes % 2.9, Eosinophils % 0.6, Basophils % 0.2, Absolute Granulocytes 17.0 H, Absolute Lymphocytes 3.4, Absolute Monocytes 0.6, Absolute Eosinophils 0.1, Absolute Basophils 0, Serum Alcohol < 10.0 Microbiology 11/03 2146 BLOOD: Blood Culture - RECD 11/04 2139 BLOOD: Blood Culture - RECD Diagnostic Imaging: Viewed by Me: Radiology Read. Discussed w/RAD: Radiology Read. CXR Impression: - New focal opacity within the lateral right midlung that may reflect pneumonia or developing aspiration for which follow-up following conservative treatment is recommended to document resolution and exclude alternative etiologies. - Stable appearing mediastinal/hilar adenopathy. Initial ED EKG: normal axis, normal intervals, normal p-waves, normal QRS complex, normal sinus rhythm, no ST T wave changes Prior EKG: unchanged Rhythm Strip: normal sinus rhythm Departure Departure Disposition: STILL A PATIENT Condition: Fair Clinical Impression Primary Impression: Pneumonia Secondary Impressions: Leukocytosis, Morphine overdose Referrals: Patient Has No Primary Care Dr (PCP/Family) Departure Forms: Customer Survey General Discharge Information Admission Note Spoke With: Pebbles Min MD Documentation of Exam: Documentation of any treatments & extenuating circumstances including Concerns Regarding Discharge (functional status, medication knowledge or non-compliance, living conditions, etc.) that warrant an admission rather than observation: Supplemental oxygen IV antibiotics follow cultures serial lab exam medication adjustment continuing care discharge planning
[2017-11-03 20:18] LABS: ABSOLUTE BASOPHIL COUNT 0 /CUMM (0.0-0.2); ABSOLUTE EOSINOPHIL COUNT 0.1 /CUMM (0.0-0.7); ABSOLUTE LYMPH COUNT 3.4 /CUMM (1.2-3.4); ABSOLUTE MONOCYTE COUNT 0.6 /CUMM (0.10-0.60); BASOPHIL % 0.2 % (0.0-2.0); EOSINOPHIL % 0.6 % (0-5); HEMATOCRIT 45.8 % (42-52); MEAN CORPUSCULAR HGB 30.5 PG (27.0-31.0); MEAN CORPUSCULAR HGB CONC 33.3 G/DL (33.0-37.0); MEAN CORPUSCULAR VOLUME 91.6 FL (80.0-94.0); MEAN PLATELET VOLUME 10.3 FL (7.4-10.4); PLATELET COUNT 251 /CUMM (130-400); RBC DISTRIBUTION WIDTH 14.2 % (11.5-14.5); WHITE BLOOD CELL COUNT 21.1 /CUMM (4.8-10.8)
[2017-11-03 20:39] LABS: GRANULOCYTE % 80.2 % (42.2-75.2)
--- NOTE | 2017-11-03 20:40 | RADIOLOGY REPORT ---
EXAMINATION: XR PORTABLE CHEST CLINICAL INFORMATION: Opiate overdose. COMPARISON: Chest x-ray June 07, 2017. TECHNIQUE: Portable frontal view of the chest was obtained. FINDINGS: Focal opacity within the lateral right midlung that may reflect pneumonia or the sequela of aspiration. No additional focal airspace opacities. No pneumothorax. There is no pleural effusion, or pneumothorax. Cardiac silhouette size is normal. Stable appearing mediastinal/hilar adenopathy. IMPRESSION: - New focal opacity within the lateral right midlung that may reflect pneumonia or developing aspiration for which follow-up following conservative treatment is recommended to document resolution and exclude alternative etiologies. - Stable appearing mediastinal/hilar adenopathy.
[2017-11-03] MEDS ORDERED: ASPIRIN EC81 M1 PO (21:18)
--- NOTE | 2017-11-03 22:21 | History & Physical ---
Abebe Mroa 11/03/17 2219: General Information and HPI MD Statement: I have seen and personally examined BERNARDO MURRAY and documented this H&P. The patient is a 66 year old M who presented with a patient stated chief complaint of [Syncope/LOC]. Source of Information: patient Exam Limitations: no limitations History of Present Illness: Patient is a 66-year-old male with PMH of HTN, HLD, CAD, T2DM, GERD, COPD, chronic back pain, bladder cancer s/p multiple resections, presented to ED BIBA from home after an unresponsive episode. According to patient, he was sitting at his kitchen table and then doesn't remember what happened next. According to ER report he was found unresponsive by his friend, who called EMS and Narcan was given and patient became alert and vomited. When asked if he took more than one of his perscribed Morphine 15mg pills, he can't remember. He doesn't know if he hit his head, but he reports right sided rib pain. He denies any dizziness, light headness, vertigo, before the syncopial episode. He denies any confusion or seizure like activity upon being aroused. He denies chest pain, shortness of breath, headache, abdominal pain, nausea, vomiting, diarrhea, change in vision, or any cerebellar symptoms. He reports he uses medical marajuana for his chronic pain. He says his rib puller perscribed him morphine for his diabetic neuropathy. Allergies/Medications Allergies: Coded Allergies: No Known Allergies (04/23/17) Home Med list Albuterol Sulfate (Proventil Hfa) 90 MCG HFA.AER.AD 2 PUF INH PRN RESP. ( Reported) Aspirin (Ecotrin*) 81 MG TABLET.DR 2 TAB PO DAILY HEART/BLOOD (Reported) Losartan Potassium 100 MG TABLET 0.5 TAB PO DAILY HIGH BLOOD PRESSURE ( Reported) Lovastatin 20 MG TABLET 1 TAB PO DAILY HIGH CHOLESTEROL (Reported) Metformin HCl 1,000 MG TABLET 1 TAB PO BID DM (Reported) Morphine Sulfate (Morphine Sulfate ER) 15 MG TABLET.ER 1 TAB PO BIDP PRN NEUROPATHY IN FEET (Reported) Past History Travel History Traveled to [place] past 21 day No Medical History Neurological: NONE EENT: hearing loss Cardiovascular: hypertension, hyperlipidemia, STENT Respiratory: NONE Gastrointestinal: NONE Hepatic: NONE Renal: NONE Musculoskeletal: NONE Psychiatric: NONE Endocrine: diabetes Blood Disorders: NONE Cancer(s): NONE History of MRSA: No History of VRE: No History of CDIFF: No Surgical History Surgical History: non-contributory Past Family/Social History Psychosocial History ETOH Use: occasional use Illicit Drug Use: marijuana Review of Systems Review of Systems Constitutional: Reports: see HPI. EENTM: Reports: see HPI. Cardiovascular: Reports: see HPI. Respiratory: Reports: see HPI. GI: Reports: see HPI. Genitourinary: Reports: see HPI. Musculoskeletal: Reports: see HPI. Skin: Reports: no symptoms. Neurological/Psychological: Reports: see HPI. Hematologic/Endocrine: Reports: no symptoms. Immunologic/Allergic: Reports: no symptoms. All Other Systems: Reviewed and Negative Exam & Diagnostic Data Last 24 Hrs of Vital Signs/I&O Vital Signs Date Time Temp Pulse Resp B/P B/P Pulse O2 O2 Flow FiO2 Mean Ox Delivery Rate 11/04 0000 94 Nasal 2.0L Cannula 11/03 2257 98.3 79 20 134/70 95 Nasal 2.0L Cannula 11/03 2254 94 Nasal 2.0L Cannula 11/03 2111 97.8 75 18 110/66 93 Nasal 2.0L Cannula 11/03 1912 95 Room Air 11/03 1902 98.6 92 18 117/63 95 Room Air Intake & Output 11/04 0800 11/04 0000 11/03 1600 Intake Total 1000 Output Total Balance 1000 Intake, IV 1000 Patient 248 lb Weight Weight Bed scale Measurement Method Physical Exam General Appearance Alert, Oriented X3, Cooperative, No Acute Distress Skin Temp/Moisture Exam: Warm/Dry Sepsis Skin Exam (color): Normal for Ethnicity HEENT Atraumatic, PERRLA, EOMI Neck Supple Cardiovascular Normal S1, Normal S2 Lungs Clear to Auscultation (Crackles in R lung) Abdomen Normal Bowel Sounds, Soft Neurological Normal Gait, Normal Speech Extremities Normal Pulses Last 24 Hrs of Labs/Narayan: Laboratory Tests 11/03/171952: Anion Gap 15, Estimated GFR > 60, BUN/Creatinine Ratio 27.8 H, Glucose 251 H, Calcium 9.3, Magnesium 2.0, Total Bilirubin 0.2, AST 50, ALT 41, Alkaline Phosphatase 45, Troponin I 0.08, Total Protein 6.7, Albumin 3.8, Globulin 2.9, Albumin/Globulin Ratio 1.3, CBC w Diff NO MAN DIFF REQ, RBC 5.00, MCV 91.6, MCH 30.5, MCHC 33.3, RDW 14.2, MPV 10.3, Gran % 80.2 H, Lymphocytes % 16.1 L, Monocytes % 2.9, Eosinophils % 0.6, Basophils % 0.2, Absolute Granulocytes 17.0 H, Absolute Lymphocytes 3.4, Absolute Monocytes 0.6, Absolute Eosinophils 0.1, Absolute Basophils 0, Serum Alcohol < 10.0 Microbiology 11/05 51 LOWER RESP: Respiratory Culture - COLB 11/05 51 LOWER RESP: Gram Stain - COLB 11/03 2146 BLOOD: Blood Culture - RECD 11/04 2139 BLOOD: Blood Culture - RECD Assessment/Plan Assessment: Vitals on admission T 98.6, HR 92, RR 18, BP 117/63 or O2 sats 95 % on Room Air. WBC 21, Blood Glucose 251 Utox and Blood cx Pending CXR: New focal opacity within the lateral right midlung that may reflect pneumonia or developing aspiration. 1. Syncope/LOC 2. Aspiration pneumonia 3. Opiate overdose Admit to general medicine IV Unasyn Sputum cultures Continue home medications DVT prophylaxis Full code As Ranked By This Provider Problem List: 1. Morphine overdose 2. Syncopal episodes 3. Aspiration pneumonia Core Measures/Misc (01/10) Acute Coronary Syndrome ACS Diagnosis: No Congestive Heart Failure Congestive Heart Failure Diagnosis No Cerebrovascular Accident CVA/TIA Diagnosis: No VTE (View Protocol) VTE Risk Factors Age>40 No Mechanical VTE Prophylaxis d/t N/A MechProphylax Ordered No VTE Pharm Prophylaxis d/t NA PharmProphylax ordered Sepsis (View protocol) Sepsis Present: Yes If YES complete Sepsis Event Note If YES complete Sepsis Event Note Peter PHAM,[facility] 11/03/17 2244: Core Measures/Misc (01/10) Sepsis (View protocol) If YES complete Sepsis Event Note If YES complete Sepsis Event Note Resident Review Statement Resident Statement: examined this patient, discussed with spring internship, agreed with spring internship, reviewed EMR data (avail), discussed with nursing, reviewed images Other Findings: Mr Murray is a 66 y/o gentleman with PMH significant for hypertension, hyperlipidemia, cad s/p bare metal stent in 2011, T2D, and bladdder cancer s/p baldder resection was brougt in [facility]. Patient was found unresponsive at his house by his friend around 6pm, who then called his . She found that he had vomited and called 911. Patient was aroused after intranasal narcan x 1. The last thing patient remembers is sitting in chair in his kitchen. Does not remember how he fell down and repeated his head. Reports pain, abdominal pain, chest pain, cough, shortness of breath, headache, weakness/numbness, seizure- like activity or lightheadedness/dizziness before or after the fall. He takes morphine for chronic neuropathy in his bilateral lower extremities but does not remember if he took an extra dose today. Vitals on admission were temperature of 98.6, HR 92, RR 18, BP 117/63 or O2 sats 95 % on Room Air. significant for WBC 21, Blood Glucose 251, Utox and Blood cx Pending CXR showed New focal opacity within the lateral right midlung that may reflect pneumonia or developing aspiration. Problem List; 1. Aspiration Pneumonia 2. Opiate overdose 3. Chronic Medical conditions - Admit the patient to general medicine floor - Start the patient on IV Unasyn - Obtain sputum culture - f/u blood Cx - Supplemental oxygen as needed - Aspiration precautions - Avoid opiates. - NovoLog sliding scale and Accu-Cheks. - Continue aspirin, losartan and lovastatin. DVT prophylaxis; Alps and subcutaneous Lovenox Patient is full code Pebbles Min MD 11/04/17 0010: Core Measures/Misc (01/10) Sepsis (View protocol) If YES complete Sepsis Event Note If YES complete Sepsis Event Note Attending MD Review Statement Attending Statement Attending MD Statement: examined this patient, discuss w/resident/PA/TAILER OUT, agreed w/resident/PA/TAILER OUT, reviewed EMR data (avail) Attending Assessment/Plan: 66F PMH CAD s/p RCA bare-metal stent, T2DM, HTN, HLD, bladder cancer in remission, GERD, COPD, chronic back pain on Morphine 15mg ER BID (took one this morning), found unresponsive by a friend of his and found that he had vomited, EMS called, Narcan given with response, brought to ER. In ER patient is sleepy but rousable, no complaints at this time. He is breathing comfortably, no chest pain, not altered. He reports having a beer or two, only took one of his Morphine pills, no other drugs or alcohol. He has coarse breath sounds bilaterally on exam R>L, soft abdomen, normal cardiac exam, normal neurological exam. Labs are significant for WBC 21, CXR shows RML infiltrate. 1. RML apsiration pneumonia 2. Unresponsiveness 3. Accidental opioid overdose Plan - Admit to general medicine - Start Unasyn - Sputum culture - Continue home medications - Hold opioids tonight, may restart tomorrow if mental status intact - Titrate down oxygen - DVT PPx
[2017-11-03 22:57] VITALS: BP 134/70
--- NOTE | 2017-11-04 00:12 | Admission Certification ---
Admission Certification Certification Statement - As attending physician, I certify that at the time of - admission, based on clinical presentation, severity of - symptoms, need for further diagnostic testing and - therapeutic interventions, and risk of adverse outcomes - without in-hospital treatment, in my clinical assessment, - this patient requires an acute hospital stay for a minimum - of two nights or longer. I have also considered psychsocial - factors such as support system, advanced age, financial - issues, cognitive issues, and failed out-patient treatments, - past re-admission history, safety of patient, and lack of - compliance as applicable. Specific rationale supporting this admission is: Unresponsivess with aspiration pneumonia
[2017-11-04 06:36] VITALS: BP 130/70
[2017-11-04 07:51] VITALS: BP 130/70
[2017-11-04 08:28] LABS: ABSOLUTE BASOPHIL COUNT 0.1 /CUMM (0.0-0.2); ABSOLUTE EOSINOPHIL COUNT 0 /CUMM (0.0-0.7); ABSOLUTE GRANULOCYTE CT 8.9 /CUMM (1.4-6.5); ABSOLUTE LYMPH COUNT 3.8 /CUMM (1.2-3.4); ABSOLUTE MONOCYTE COUNT 0.6 /CUMM (0.10-0.60); BASOPHIL % 0.4 % (0.0-2.0); EOSINOPHIL % 0.3 % (0-5); GRANULOCYTE % 66.5 % (42.2-75.2); HEMATOCRIT 42.5 % (42-52); MEAN CORPUSCULAR HGB 30.4 PG (27.0-31.0); MEAN CORPUSCULAR HGB CONC 32.8 G/DL (33.0-37.0); MEAN CORPUSCULAR VOLUME 92.6 FL (80.0-94.0); MEAN PLATELET VOLUME 10.5 FL (7.4-10.4); RBC DISTRIBUTION WIDTH 14.1 % (11.5-14.5); RED BLOOD CELL CT 4.59 /CUMM (4.70-6.10); WHITE BLOOD CELL COUNT 13.4 /CUMM (4.8-10.8)
--- NOTE | 2017-11-04 08:58 | PN- Housestaff ---
Gia Tee 11/04/17 0857: Subjective Follow-up For: Opiate Overdose Subjective: Patient seen and examined at bedside, no acute events overnight, afebrile. Patient states he does not know how he overdoses, states his friend gave him something to smoke, he thought it was pot and smoked it. Denies: cravings, irritablity, agitation, constpation, diarrhea and abdominal pain. Review of Systems Constitutional: Denies: chills, diaphoresis, fever. Cardiovascular: Denies: chest pain, orthopena. Respiratory: Denies: cough, hemoptysis, short of breath, sputum production. Gastrointestinal: Denies: abdominal pain, constipation, diarrhea, changes in stool. Neurological/Psychological: Denies: anxiety, cognitive dysfunction, confusion, emotional problems, headache, tingling, tremors. Objective Last 24 Hrs of Vital Signs/I&O Vital Signs Date Time Temp Pulse Resp B/P B/P Pulse O2 O2 Flow FiO2 Mean Ox Delivery Rate 11/04 0800 Nasal 2.0L Cannula 11/04 0751 98.6 65 20 130/70 11/04 0636 98.6 65 20 130/70 94 Nasal 2.0L Cannula 11/04 0000 94 Nasal 2.0L Cannula 11/03 2257 98.3 79 20 134/70 95 Nasal 2.0L Cannula 11/03 2254 94 Nasal 2.0L Cannula 11/03 2111 97.8 75 18 110/66 93 Nasal 2.0L Cannula 11/03 1912 95 Room Air 11/03 1902 98.6 92 18 117/63 95 Room Air Intake & Output 11/04 1600 11/04 0800 11/04 0000 Intake Total 100 1000 Output Total 200 Balance -[phone] Intake, IV 100 1000 Output, Urine 200 Patient 248 lb Weight Weight Bed scale Measurement Method Physical Exam General Appearance: Alert, Oriented X3, Cooperative Skin: No Rashes HEENT: Atraumatic, PERRLA, EOMI Neck: Supple, No LAD Cardiovascular: Regular Rate, Normal S1, Normal S2 Lungs: Clear to Auscultation, Normal Air Movement Abdomen: Normal Bowel Sounds, Soft, No Tenderness Neurological: Normal Speech, Strength at 5/5 X4 Ext, Cranial Nerves 3-12 NL Extremities: No Cyanosis, No Edema, Normal Pulses Assessment/Plan Assessment: Patient is a 66yoM with PMHx of HTN, HLD, CAD, T2DM, GERD, COPD, chronic back pain, bladder cancer s/p multiple resections, who was brought to the ED after a friend found patient unresponsive at his house. Patient had smoked something that smelled like pot, but does not recall what happened afterwards. Patient was given Narcan in ED and became responsive. Problem List: 1. Opiate Overdose 2. Aspiration Pneumonia #Opiate Overdose Urinary Tox screen postive for Opiates, Benzos, and Marjiuana. Patient does not have any symptoms of withdrawal Plan: Monitor patient, avoid narco's and benzo's 2. Aspiration Pneumonia Elevated WBC on admission, which is trending down to 13.4 today. Afebrile since admission. Plan: Switch to PO Augmentin for 5 days Plan to discharge patient as patient has recovered much faster then expected. Patient was weaned off of oxygen, with amubalory O2 sat of 96%, will discharge home with Augmentin. Problem List: 1. Aspiration pneumonia Pain Ratin Pain Location: n/a Pain Goal: Remain pain free Pain Plan: none Tomorrow's Labs & Rationales: none Cleve Stevenson MD 11/04/17 1721: Attending MD Review Statement Attending Statement Attending MD Statement: examined this patient, discuss w/resident/PA/POLICE DETECTIVE, agreed w/resident/PA/POLICE DETECTIVE, discussed with family, reviewed EMR data (avail), discussed with nursing, discussed with case mgmt, reviewed images, amended to note Attending Assessment/Plan: The patient was seen and discussed with house staff, nursing, and case management. Significant improvement in breathing and mental status. Much faster than expected. Oxygen weaned and patient able to go home today on po Augmentin. The patient wishes discharge. He had previously seen Dr. Corcoran and did get last prescriptions from Dr. Gannon, however declined our sending information to Dr. Gannon stating he is seeking a new PCP.
[2017-11-04 10:08] LABS: PLATELET COUNT 220 /CUMM (130-400)
[2017-11-04] MEDS ORDERED: AUGMENTIN 875-1 EACH PO ×2 (10:46→10:54)
--- NOTE | 2017-11-04 10:47 | Patient Discharge Instructions ---
Discharge Instructions General Discharge Information You were seen/treated for: Opioid overdose, aspiration pneumonia Watch for these problems: Fever, chest pain, shortness of breath Special Instructions: Please take all medications as directed. Please follow-up with primary care. Diet Continue normal diet: Yes Activity Full Activity/No Limits: Yes Acute Coronary Syndrome Inclusion Criteria At DC or during hospital stay patient has or had the following: ACS DIAGNOSIS No Discharge Core Measures Meds if any: Prescribed or Continued at Discharge Meds if any: NOT Prescribed or Continued at Discharge Congestive Heart Failure Inclusion Criteria At DC or during hospital stay patient has or had the following: CHF DIAGNOSIS No Discharge Core Measures Meds if any: Prescribed or Continued at Discharge Meds if any: NOT Prescribed or Continued at Discharge Cerebrovascular accident Inclusion Criteria At DC or during hospital stay patient has or had the following: CVA/TIA Diagnosis No Discharge Core Measures Meds if any: Prescribed or Continued at Discharge Meds if any: NOT Prescribed or Continued at Discharge Venous thromboembolism Inclusion Criteria VTE Diagnosis No VTE Type NONE VTE Confirmed by (Test) NONE Discharge Core Measures - Per Current guidelines, there needs to be overlap - treatment for the first 5 days of Warfarin therapy. - If discharged on Warfarin prior to 5 days of - overlap therapy, the patient will need to be - assessed for post discharge needs including - *Post discharge parental anticoagulation - *Warfarin and/or parental anticoagulation education - *Follow up date to check INR post discharge At least 5 days overlap therapy as Inpatient No Meds if any: Prescribed or Continued at Discharge Note: Overlap Therapy is Warfarin and Anticoagulant Meds if any: NOT Prescribed or Continued at Discharge
== END 2017-11-04 12:40 | DRG 917 ==
LOC: ERH 18:56 → ERHI 21:14 → ENRESERV 22:01 → ENTRNSPT 22:30 → 2NA 22:34 → CMPTRNSPT 22:54 → ENPENDDIS 11-04 10:50 → 2NA 11-04 12:40
PROVIDERS: Emergency Medicine; Internal Medicine
DX: T40.2X1A Poisoning by other opioids, accidental (unintentional), initial encounter (principal); J69.0 Pneumonitis due to inhalation of food and vomit; E11.42 Type 2 diabetes mellitus with diabetic polyneuropathy; J44.9 Chronic obstructive pulmonary disease, unspecified; Y92.009 Unspecified place in unspecified non-institutional (private) residence as the place of occurrence of the external cause; I25.10 Atherosclerotic heart disease of native coronary artery without angina pectoris; K21.9 Gastro-esophageal reflux disease without esophagitis; I10 Essential (primary) hypertension; G89.29 Other chronic pain; M54.9 Dorsalgia, unspecified; Z85.51 Personal history of malignant neoplasm of bladder; E78.5 Hyperlipidemia, unspecified; Z79.84 Long term (current) use of oral hypoglycemic drugs
CPT/HCPCS: 2NASP; 36592; 71045; 80307; 87040; 87070; 93005; 93010; G0480; J1650; J2405